=== PATIENT | male | born 1950 | race Caucasian/White ===

== ENCOUNTER → 2017-02-22 | Outpatient (CLI) | payer BC, MEDICARE ==
[~2017-02-22] MED LIST: ASPIRIN81 MG PO; ATORVASTATIN CA20 M1 PO; EFFIENT10 M1 PO; NORCO 325 MG-51 TAB PO; OXYBUTYNIN5 MG PO; PRILOSEC OTC20 MG PO; SPIRIVA HA1 PUFF/INH IH; TAMSULOSIN HCL0.4 MG PO
--- NOTE | 2017-02-24 05:04 | RADIOLOGY REPORT PS360 ---
MRI-UP EXT ANY JNT W/O-RT HISTORY: PAIN IN RT SHOULDER ORDERING PHYSICIAN: Melita Ferreira APRN PATIENT AGE: 66 years COMPARISON: None TECHNIQUE: Standard multiplanar multiecho sequences are performed without contrast. FINDINGS: There is prominent hypertrophic change of the acromioclavicular joint with edema of the distal clavicle and acromion. There is some increased T2 signal about the soft tissues of the AC joint as well and a small amount fluid in the AC joint. This before meals hypertrophy is causing impingement on the supraspinatus tendon. There is thickening of the supraspinatus tendon with increased T2 signal consistent with tendinopathy/tendinosis. A definite tear is not identified. The infraspinatus tendon is intact. The subscapularis and teres minor tendons also appear intact. There is some mild thickening of the subscapularis tendon distally. The bicipital tendon is in place. Mild subcortical cystic changes involving the humeral head posteriorly There does appear to be a tear of the anterior inferior glenoid labrum/Bankart lesion. This may be confirmed with MR arthrography if clinically desired. IMPRESSION: 1. Acromioclavicular osteoarthritic change with hypertrophy with impingement upon the supraspinatus tendon. 2. Tendinopathy/tendinosis of the supraspinatus tendon without obvious tear 3. Suspect Bankart lesion of the anterior labrum. Indirect MR arthrography may confirm.
== END ==
LOC: RAD 14:06
DX: M25.511 Pain in right shoulder (principal)